=== PATIENT | female | born 2000 | race Two or more races ===

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

== ENCOUNTER 2021-01-15 22:39 | Emergency (ER) | payer MEDICAID ==
[~2021-01-15] VITALS: Ht 154.9 cm; Wt 65.2 kg
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
--- NOTE | 2021-01-15 22:52 | NUR ---
PT NOT CURRENTLY ON A HOLD.
[2021-01-15 23:26] LABS: BASOPHILS % (AUTO) 1 % (0-1); EOSINOPHILS % (AUTO) 1 % (1-7); LYMPHOCYTES % (AUTO) 40 % (22-44); MEAN CORPUSCULAR HEMOGLOBIN 27.8 pg (27.0-34.8); MEAN CORPUSCULAR HGB CONC 33.5 g/dL (32.4-35.8); MONOCYTES % (AUTO) 7 % (2-9); NEUTROPHILS % (AUTO) 52 % (42-75); PLATELET COUNT 277 x10^3/uL (130-400); RED BLOOD COUNT 5.08 x10^6/uL (3.82-5.3); RED CELL DISTRIBUTION WIDTH 14.2 % (9.6-15.2)
[2021-01-15 23:37] LABS: AMPHETAMINE SCREEN, URINE Negative (Negative); BARBITURATE SCREEN, URINE Negative (Negative); BENZODIAZEPINE SCREEN, URINE Negative (Negative); CANNABINOID SCREEN, URINE Positive (Negative); COCAINE SCREEN, URINE Negative (Negative); METHADONE SCREEN, URINE Negative (Negative); OPIATE SCREEN, URINE Negative (Negative)
[2021-01-15 23:37] LABS: ALBUMIN 3.9 g/dL (3.4-5.0); ANION GAP 5 mmol/L (5-15); CHLORIDE 109 mmol/L (98-107)
[2021-01-15 23:39] LABS: SALICYLATE LEVEL < 1.7 mg/dL (2.8-20.0)
[2021-01-15 23:43] LABS: ALANINE AMINOTRANSFERASE 47 U/L (12-78); ALKALINE PHOSPHATASE 86 U/L (45-117); BILIRUBIN,TOTAL 0.3 mg/dL (0.2-1.0); CREATININE 0.68 mg/dL (0.55-1.02); TOTAL PROTEIN 7.6 g/dL (6.4-8.2)
--- NOTE | 2021-01-16 00:04 | NUR ---
PT RESTING IN ROOM, DENIES ANY NEEDS AT THIS TIME. AWAITING PSYCH EVAL
[2021-01-16] MEDS ORDERED: ACETAMINOPHEN 325 MG TABLET ONE (02:29)
[2021-01-16] MEDS ORDERED: ACETAMINOPHEN 325 MG TABLET PO ONE (02:30)
[2021-01-16 04:12] VITALS: BP 117/77
== END 2021-01-16 04:18 | disposition home or self-care (01) ==
LOC: ED 23:44
DX: F41.1 Generalized anxiety disorder (principal)
CPT/HCPCS: 36415; 80053; 80299; 80307; 80320; 80329; 84703; 85025; 99283; G0480

== ENCOUNTER 2021-04-04 15:13 | Emergency (ER) | payer SELFPAY ==
[~2021-04-04] VITALS: Ht 154.9 cm; Wt 58.2 kg
[2021-04-04 15:40] VITALS: BP 114/80
== END 2021-04-04 15:46 ==
LOC: ED 15:40
DX: B34.9 Viral infection, unspecified (principal)
CPT/HCPCS: 99282